=== PATIENT | male | born 2000 | race Caucasian/White ===

== ENCOUNTER 2022-05-07 13:58 | Emergency (ER) | payer MEDICAID, SELFPAY ==
[2022-05-07 13:59] VITALS: BP 130/81; PULSE 74; RESP 14; TEMP 36.2; O2SAT 98; BMI 22.8
--- NOTE | 2022-05-07 14:46 | CM.ED ---
Social Work Note Reason for Referral: No PCP SW reviewed chart, No PCP listed for pt. Lorna MEHTA met with pt and provided pt with PCP list. Karolyn Larsen W[employer] RESOURCE MANAGER, [employer]ING SERVER
--- NOTE | 2022-05-07 14:48 | EX.ED.UPPERE ---
HPI History of Present Illness HPI Narrative: Patient presents with right wrist pain that has been constant for at least a year. Patient states it is gradually gotten worse. Patient states it is over the dorsal aspect of his right wrist. Patient states it is worse whenever he flexes his right wrist completely. Patient denies any trauma or injury. Patient denies any paresthesias or weakness. Patient denies any fevers or chills. Patient describes his pain as sharp. Chief Complaint: Upper Extremity Injury Informant: patient Onset/Context/Timing Onset: - (At least 1 year) Context: Gradual Onset Timing: Continuous Quality of Pain: Sharp Location: Dorsal aspect right wrist Worsened by: Flexion Relieved by: Nothing Associated Symptoms Associated Symptoms: Negative for Parasthesia, Weakness and Loss of Funtion PFSH PFSH Medical History no medical history no medical history Home Medications NK 05/07/22 [History Last Taken Unknown] Allergy/AdvReac Type Severity Reaction Status Date / Time No Known Allergies Allergy Verified 05/07/22 13:59 Family History no significant family his Surgical History no surgical history no surgical history Social History Smoking Status: Current every day smoker tobacco type: cigarettes ROS ROS ED Constitutional Constitutional ED: Denies chills or fever(s) Eyes Eyes: Denies blurry vision or change in vision ENT ENT ED: Denies rhinorrhea or sore throat Cardiovascular Cardiovascular: Denies chest pain or palpitations Respiratory/Chest Respiratory/Chest: Denies cough or dyspnea Gastrointestinal Gastrointestinal: Denies nausea or vomiting Genitourinary Genitourinary ED: Denies dysuria or hematuria Musculoskeletal Musculoskeletal: Denies back pain or neck pain Integumentary Denies abscess or rash Neurologic Neurologic: Denies headache(s) or weakness Allergic/Immunologic Allergic/Immunologic ED: Denies mouth swelling or urticaria EXAM Physical Exam Const Vital Signs: 05/07/22 13:59 Temperature 97.2 F L Temperature Source Temporal Pulse Rate 74 Respiratory Rate 14 Blood Pressure 130/81 H Blood Pressure Mean 97 Pulse Ox 98 Oxygen Delivery Method Room Air Positive well nourished and well developed General Appearance ED: well developed and NAD HEENT Reports moist mucous membranes Neck full ROM Extremity Extremity Narrative: There is a ganglion cyst noted on the dorsal aspect of the right wrist. There is no erythema or edema noted. There is no bony crepitance or step-off. There is good range of motion of the right wrist. There is no deformity noted. Radial pulses are equal bilaterally. Sensation was intact to light touch in the radial, median, and ulnar areas. Capillary refills less than 2 seconds in all digits. Strength is 5/5 in the radial, median, and ulnar areas. Neuro oriented x3, CN's II-XII intact bilaterally, moves all extremities, no focal motor deficits and no sensory deficits noted Sensorium / Orientation: alert Psych mental status grossly normal MDM MDM MDM Narrative Medical decision making narrative: Patient was advised that this is a ganglion cyst. Patient was instructed to ice and elevate the right wrist. Patient was instructed to take ibuprofen as needed for pain. Patient was given a referral for primary care follow-up. Patient understood and was agreeable with the plan. All questions were answered. Discharge Plan Triage Chief Complaint: Upper Extremity Injury ED Provider: Martínez Mukherjee Dx/Rx/DC Orders Clinical Impression: Ganglion cyst of dorsum of right wrist Instructions: ED Ganglion Cyst Prescriptions: No Action NK RF: 0 Primary Care Provider: Care Physician,No Primary Referrals: Dimitri Wilks MD [STAFF PHYSICIAN] - 5-7 Days Care Physician,No Primary [Primary Care Provider] - Disposition Disposition: Home, Self Care
[2022-05-07 14:54] VITALS: PULSE 84; RESP 16; O2SAT 98
== END 2022-05-07 14:58 | disposition home or self-care (01) ==
PROVIDERS: Emergency Provider Emergency Medicine; Visit Provider Emergency Medicine
DX: M67.431 Ganglion, right wrist (principal); F17.210 Nicotine dependence, cigarettes, uncomplicated
CPT/HCPCS: 99282

== ENCOUNTER 2023-05-12 18:50 | Emergency (ER) | payer MEDICAID, SELFPAY ==
[2023-05-12 18:51] VITALS: BP 155/102; PULSE 74; RESP 14; TEMP 37.2; O2SAT 100; BMI 22.8
--- NOTE | 2023-05-12 19:11 | ED.VIS.DENTA ---
HPI History of Present Illness Chief Complaint: Dental Informant: patient Onset/Context/Timing Onset: Days (3 days) Context: Gradual Onset Narrative Narrative: Patient presents with 3-day history of right lower dental pain. Patient states his tooth broke off quite some time ago but became painful again 3 days ago. He states that there is a dentist on [facility] that he can go to but they are closed at this time so he came here to start treatment. He has not been taking anything for pain. PFSH PFSH Medical History no medical history no medical history Home Medications naproxen 500 mg tablet (Naprosyn) 500 mg PO BID PRN pain #20 tabs 05/12/23 [Rx Last Taken Unknown] penicillin V potassium 500 mg tablet 500 mg PO 4X/DAY #40 tabs 05/12/23 [Rx Last Taken Unknown] Allergy/AdvReac Type Severity Reaction Status Date / Time No Known Allergies Allergy Verified 05/12/23 18:50 Social History Smoking Status: Current every day smoker tobacco type: cigarettes ROS ROS ED Constitutional Constitutional ED: Denies chills or fever(s) ENT ENT ED: Reports other Details: Right-sided dental pain ; Denies rhinorrhea or sore throat Cardiovascular Cardiovascular: Denies chest pain Respiratory/Chest Respiratory/Chest: Denies cough or dyspnea Gastrointestinal Gastrointestinal: Denies abdominal pain, nausea or vomiting Musculoskeletal Musculoskeletal: Denies back pain or extremity pain Integumentary Denies Abrasions or rash Neurologic Neurologic: Denies headache(s) Allergic/Immunologic Allergic/Immunologic ED: Denies lip swelling or urticaria EXAM Physical Exam Const Vital Signs: 05/12/23 18:51 Temperature 99 F Temperature Source Temporal Pulse Rate 74 Respiratory Rate 14 Blood Pressure 155/102 H Blood Pressure Mean 119 Pulse Ox 100 Oxygen Delivery Method Room Air Positive well nourished and well developed General Appearance ED: well developed HEENT HEENT Narrative: No facial edema or erythema noted. Right mandibular first molar is broken with mild surrounding gum edema. Posterior pharynx exam is normal. No trismus. No cervical lymphadenopathy. Eyes PERRL and EOMs intact bilaterally Neck no lymphadenopathy Chest Wall inspection of chest normal and palpation of chest normal Resp normal respiratory effort and clear to auscultation bilaterally Cardio regular rate, regular rhythm and no murmurs Extremity normal to inspection Neuro oriented x3 Psych mental status grossly normal Skin no rashes or lesions noted MDM MDM MDM Narrative Medical decision making narrative: Patient be started on Pen-Vee K along with prescription naproxen. He will follow-up with his dentist on [facility]. Return instructions given. Discharge Plan Triage Chief Complaint: Dental ED Provider: Sandee Mehta Dx/Rx/DC Orders Clinical Impression: Odontalgia Instructions: ED Dental Pain, ED Dental Cavity Prescriptions: New penicillin V potassium 500 mg tablet 500 mg PO 4X/DAY Qty: 40 0RF naproxen [Naprosyn] 500 mg tablet 500 mg PO BID PRN (Reason: pain) Qty: 20 0RF Primary Care Provider: Care Physician,No Primary Referrals: Care Physician,No Primary [Primary Care Provider] - Activity Restrictions/Additional Instructions: Follow-up with your dentist on [facility] as discussed. Disposition Disposition: Home, Self Care
[2023-05-12] MEDS: Penicillin Vk 250 MG Tablet 500 MG PO (19:22)
[2023-05-12] MEDS: Naproxen 500 MG Tablet PO (19:22)
== END 2023-05-12 19:26 | disposition home or self-care (01) ==
PROVIDERS: Emergency Provider Emergency Medicine; Visit Provider Emergency Medicine
DX: K08.89 Other specified disorders of teeth and supporting structures (principal); F17.210 Nicotine dependence, cigarettes, uncomplicated
CPT/HCPCS: 99283